=== PATIENT | male | born 1955 | race Caucasian/White ===

== ENCOUNTER 2017-02-10 12:07 | Inpatient (IN) ==
--- NOTE | 2017-02-10 13:56 | Hospitalist History & Physical ---
Assessment and Plan - Time spent with patient Time spent with patient: Greater than 30 minutes (1) Acute on chronic kidney failure Status: Acute Assessment and plan: 02/10/17 - Will admit to Hospitalist services. Order renal Ultrasound. Consult Nephrology (has seen Dr Miller in past after heart surgery). Will order a.m. labs. Will discuss with Dr Guillermo for further recommendations. Current Visit: Yes History of Present Illness Chief complaint: urinary retention History of present illness: Mr. Dennis is a very pleasant 61 year old white male presented to [facility] ED sent from Dr Jamison office for elevated BUN 101 and Creatinine 15.13, potassium 5.0. and urinary retention for further evaluation. Patient verbalized starting in December he was unable to completely empty his bladder, Dr Jamison noted on prostate exam prostate was firm on one side and PSA was normal, and no blood in stool. Today he went to Dr Jamison office because he had some nausea and worsening urinary retention and filling full; vomited once, denies any blood. Medical History: chronic back pain, HTN, GA, AFib, CAD, kidney disease, reflux. Past Surgical Hx: CABG. Social history: none smoker, denies alcohol, marijuana use occasionally. PCP: Dr Jamison. Machine I Trimmer: Dr Arellano. Code status discussed with patient: Full Code status. Home Medications Medication Instructions Recorded Confirmed Type Atorvastatin [Lipitor] 80 mg PO PC SUPPER 12/27/14 02/10/17 History Aspirin [Ecotrin] 81 mg PO QAM 01/11/15 02/10/17 History Carvedilol 12.5 mg PO BID 02/10/17 02/10/17 History Clopidogrel [Plavix] 75 mg PO QAM 02/10/17 02/10/17 History LORazepam TAB [Ativan Tab] 0.5 mg PO BEDTIME 02/10/17 02/10/17 History Losartan Potassium 100 mg PO QAM 02/10/17 02/10/17 History Tamsulosin HCl 0.4 mg PO PC BREAKFAST 02/10/17 02/10/17 History hydroCHLOROthiazide 25 mg PO QAM 02/10/17 02/10/17 History [Hydrochlorothiazide] Allergies Allergy/AdvReac Type Severity Reaction Status Date / Time No Known Allergies Allergy Verified 01/11/15 09:33 Medical,Surgical,& Family Hx - Medical History Cardio: History of: Cardiac Dysrhythmia (CURRENT DX, AFib), Hypertension Neurology: History of: Seizures (last month, hyponatremia) Rheumatology: History of;: Gout Renal: History of: Renal Problems (CRI, Stage 2 Chronic kidney disease, urinary retention) Gastrointestinal: History of: GERD Musculoskeletal: History of: Back/Neck Problems, Degenerative Disk Disease - Surgical History Cardiac Surgeries: Sugical HX of: Cardiac Surgery (CABG) Neurologic Surgeries: Patient denies: Neurologic Surgery - Family History Family History: Reports;: Family Cancer (MOTHER), Family Heart Disease (FATHER PASSED OF AMI) Denies;: Family Diabetes - Social History Smoking Status: Never smoker Frequency of Alcohol Use: None Type of Drug Use: None, Marijuana (occasional) Marital Status: Single Lives With:: Sibling (lives with his brother) Functional capacity: independent ambulation Review of systems: ROS completed and pertinent positives and negatives in HPI Exam - Constitutional Vitals: Period Temp Pulse Resp BP Sys/Chinchilla Pulse Ox Last 24 Hr 98.7 F 72 20 183/108 97 General appearance: no acute distress, over weight - Head Head exam: Present: normal inspection - Eye Eye exam: Present: EOMI Pupils: Present: STELLA - ENT ENT exam: Present: normal exam (moist mucus membranes) - Neck Neck exam: Present: normal inspection - Respiratory Respiratory exam: Present: clear to auscultation bilaterally - GI/Abdominal GI/Abdominal exam: Present: normal bowel sounds, tenderness (suprapubic with slight tenderness), other (distended bladder; ordered insert reynolds catheter). Absent: guarding, rebound - Extremities Exam Extremities exam: Present: full ROM, other (completely healed left and right lower leg vein harvest site) - Neurological Exam Neurological exam: Present: alert, oriented X3, CN II-XII intact - Psychiatric Psychiatric exam: Present: normal affect, normal mood. Absent: agitated, anxious - Skin Skin exam: Present: normal color, warm, dry Results - Labs Lab Results: I have reviewed the past 24 hour labs Labs: labs from outside (Dr jamison office) 01/17/17: Creatinine 4.45 and BUN 29 02/10/17: Creatinine 15.13 & BUN 101 & K 5.0 Labs in the ER 02/10/17: sodium 136; K 4.4; chloride 101; Carbon dioxide 19; Anion gap 20.4; BUN 88; Creatinine 14.70; Urine negative
--- NOTE | 2017-02-10 13:58 | Emergency Department Note ---
Juno Wilkins Brittany, am scribing for, and in the presence of, Lazaro Rob MD 13:13. Darron Wilkins Phillip K, MD, personally performed the services described in this documentation, ascribed by Lenka Fraire in my presence, and it is both accurate and complete 358 . Arrival - Arrival Chief Complaint: Urogenital - Male Stated Complaint: kidney's ED Nursing Triage Note: Unable to urinate x 2 months - pt states that he was sent by Dr Jamison for work up and admission. Mode of Arrival: Ambulatory Limitations: No Limitations Source: Patient Time Seen by Provider: 02/10/17 12:50 - History of Present Illness HPI Narrative: This is a 61 y/o white male, who presents to the ED for further evaluation of urinary retention which started 3 weeks ago. He reports he feels like he has to urinate but only urinates a small amount. He states at night he has to wear a diaper secondary to bladder leakage. He reports nausea. PCP is Dr. Jamison. Pt has no other complaints/pain in the ED at this time. Pt has a PMHx of Seizures, GOUT, renal problems, GERD, back/neck problems, and degenerative disk disease. Pt denies a surgical Hx. Pt has a family medical Hx of cancer and heart disease. Pt denies a social Hx. Onset (ago): month(s) (Started 2 months ago) Consistency: constant Severity: moderate Allergies/Adverse Reactions: Allergies Allergy/AdvReac Type Severity Reaction Status Date / Time No Known Allergies Allergy Verified 01/11/15 09:33 Home Medications: Home Medications Medication Instructions Recorded Confirmed Type Atorvastatin [Lipitor] 80 mg PO PC SUPPER 12/27/14 02/10/17 History Aspirin [Ecotrin] 81 mg PO QAM 01/11/15 02/10/17 History Carvedilol 12.5 mg PO BID 02/10/17 02/10/17 History Clopidogrel [Plavix] 75 mg PO QAM 02/10/17 02/10/17 History LORazepam TAB [Ativan Tab] 0.5 mg PO BEDTIME 02/10/17 02/10/17 History Losartan Potassium 100 mg PO QAM 02/10/17 02/10/17 History Tamsulosin HCl 0.4 mg PO PC BREAKFAST 02/10/17 02/10/17 History hydroCHLOROthiazide 25 mg PO QAM 02/10/17 02/10/17 History [Hydrochlorothiazide] Review of System - Review of System 12 point system: reviewed and no additional remarkable complaints except as stated - Review of System Gastrointestinal: Present: nausea Genitourinary male: Present: other (Urinary retention ) Medical,Surgical,& Family Hx - Medical History Cardio: History of: Cardiac Dysrhythmia (CURRENT DX) Neurology: History of: Seizures (new onset today, hyponatremia) Rheumatology: History of;: Gout Renal: History of: Renal Problems (CRI) Gastrointestinal: History of: GERD Musculoskeletal: History of: Back/Neck Problems, Degenerative Disk Disease - Surgical History Neurologic Surgeries: Patient denies: Neurologic Surgery - Family History Family History: Reports;: Family Cancer (MOTHER), Family Heart Disease (FATHER PASSED OF AMI) Denies;: Family Diabetes - Social History Smoking Status: Never smoker Frequency of Alcohol Use: None Type of Drug Use: None Exam Vital Signs: Vital Signs Temperature 98.7 F 02/10/17 14:21 Pulse Rate 72 02/10/17 14:21 Respiratory Rate 20 02/10/17 14:21 Blood Pressure 183/108 02/10/17 14:21 O2 Sat by Pulse Oximetry 97 02/10/17 12:23 - General General appearance: alert, in no apparent distress - Head Head exam: Present: atraumatic, normocephalic, normal inspection - Eye Eye exam: Present: PERRL, EOMI, other (Pale conjunctiva). Absent: nystagmus, miosis, mydriasis - ENT ENT exam: Present: normal exam, normal oropharynx, mucous membranes moist, TM's normal bilaterally, normal external ear exam - Neck Neck exam: Present: normal inspection, full ROM, trachea midline. Absent: tenderness, meningismus, lymphadenopathy, thyromegaly - Chest Chest inspection: Present: normal inspection, symmetric chest wall rise. Absent : tenderness, rash, abscess - Respiratory Respiratory exam: Present: normal lung sounds bilaterally. Absent: rales, respiratory distress, rhonchi, stridor, wheezes - Cardiovascular Cardiovascular exam: Present: regular rate, normal rhythm, normal heart sounds. Absent: murmur, rubs, gallop, clicks, JVD - Abdominal Exam Abdominal exam: Present: soft, tenderness (Supra pubic tendnerness), normal bowel sounds, other (Distended bladder). Absent: distention, guarding, rebound , rigidity - Rectal Exam Rectal exam: Present: deferred - Extremities Exam Extremities exam: Present: normal capillary refill, pedal edema (+1 pitting edema to the right exteremity, while the left has +2 pitting edema). Absent: joint swelling, calf tenderness - Back Exam Back exam: Present: normal inspection, full ROM. Absent: tenderness, muscle spasm, rashes - Neurological Exam Neurological exam: Present: alert, oriented X3, CN II-XII intact. Absent: motor sensory deficit - Psychiatric Psychiatric exam: Present: normal affect, normal mood. Absent: depressed, agitated, anxious, flat affect, manic - Skin Skin exam: Present: warm, dry, intact, normal color. Absent: rash, cyanosis, diaphoresis, erythema, pallor, mottled Course Course Narrative: Patient had 2000 cc residual urine after trying to void. Results - Labs CBC & BMP: 02/10/17 13:15 Lab Results: I have reviewed the patients labs Labs: Laboratory Tests 02/10/17 02/10/17 13:15 13:15 Sodium 136 Potassium 4.4 Chloride 101 Carbon Dioxide 19 L Anion Gap 20.4 H BUN 88 H Creatinine 14.70 H GFR Calculation 4 BUN/Creatinine Ratio 5.00 L Glucose 141 H Calculated Osmolality 300.0 Calcium 8.9 Total Bilirubin 0.70 AST 20 ALT 19 Alkaline Phosphatase 85 Total Protein 6.9 Albumin 3.9 Globulin 3.0 Albumin/Globulin Ratio 1.3 Urine Color Straw Urine Appearance Clear Urine pH 5.0 Ur Specific [place] 1.004 Urine Protein Negative Urine Glucose (UA) Negative Urine Ketones Negative Urine Blood Moderate Urine Nitrate Negative Urine Bilirubin Negative Urine Urobilinogen < 2.0 H Urine Leukocytes Negative Urine RBC 1 Urine WBC 1 Urine Bacteria Occasional Ur Culture Indicated? Not indicated - Diagnostic Findings Procedure: Ultrasound: report reviewed by me (Renal ultrasound: Increased parenchymal echolgencitiy of the kidneys consistent with medical renal disease. Bilateral renal cysts. Mild right hydronephrosis. Urinary bladder wall thickening. ) Disposition Clinical Impression: Renal failure, Urinary retention due to benign prostatic hyperplasia Case discussed with: patient Disposition: Still a Patient Condition: Guarded Additional Instructions: Admit to the hospitalist.
[2017-02-10 14:02] LABS: Albumin 3.9 G/DL (3.4-5.0); Bilirubin,Total 0.7 MG/DL (0.2-1.0); Calcium 8.9 MG/DL (8.5-10.1); Potassium 4.4 MMOL/L (3.5-5.1); Total Protein 6.9 G/DL (6.4-8.3)
[2017-02-10 14:04] LABS: Apearance,Urine CLEAR (Clear); Bacteria,Urine Occasional /HPF (Few); Bilirubin,Urine Negative (Negative); Blood, Urine Moderate mg/dL (Negative); Glucose,Urine (UA) Negative (Negative); Ketones,Urine Negative (Negative); Nitrite,Urine Negative (Negative); Protein,Urine Negative; RBC,Urine 1 /HPF (0-4); Urine Color Straw (Yellow); Urine Specific Gravity 1.004 (1.001-1.035); Urine Urobilinogen < 2.0 EU/DL (0.2-1.0); WBC,Urine 1 /HPF (0-6)
[2017-02-10] MEDS ORDERED: ACETAMINOPHEN 325 MG TABLET PO PRN (14:22)
--- NOTE | 2017-02-10 15:10 | Ultrasound Report ---
Bilateral renal ultrasound. Indication: Urinary retention. No prior studies. The kidneys are normal in size. The right kidney measures 9.9 x 5.0 x 4.7 cm. The left kidney measures 10.9 x 5.7 x 5.6 cm. The cortical thickness is normal. There is an increase in the parenchymal echogenicity which can be seen with medical renal disease. There is a 3 cm cyst at the midpole of the right kidney. There is a 3.2 cm cyst at the lower pole of the left kidney. There is mild hydronephrosis on the right. There is a thickened bladder wall. Impression: Increased parenchymal echogenicity of the kidneys consistent with medical renal disease. Bilateral renal cysts. Mild right hydronephrosis. Urinary bladder wall thickening PROCEDURE INTERPRETED AT [facility] DEPARTMENT OF RADIOLOGY Final Report Signed by: Dr. Antonella Lopez
--- NOTE | 2017-02-10 17:09 | Nephrology Consult Note ---
History of Present Illness Chief complaint: Increased BUN and creatinine History of present illness: Mr. Dennis is a 61 year old male with chronic kidney disease stage III who presented for admission today due to increased creatinine of 14 mg/dL. The patient states that for about 2 months he has been having some problems with urination including hesitancy and frequency as well as incontinence at night. The symptoms worsened in the past couple of weeks. He has also been having a sensation of pelvic fullness for the past couple weeks and started to have some nausea and vomiting as well as some decreased p.o. intake relating that he would have a desire to eat but as soon as he ate he lost that desire. The patient had been given Lasix and Flomax and an increase in his blood pressure medication a couple of months ago when he first started having symptoms of urinary retention and hesitancy. Patient denies any history of diabetes, he does state that he has had high blood pressure as well as heart disease and had a bypass procedure on his heart about 3 years ago and since that time has been told that he has some chronic kidney disease. ROS: Head -occasional headaches ENT - denies sore throat Lymphatics - denies lymphadenopathy Hematology - denies bleeding problems Heart - denies chest pain Lungs -positive shortness of breath Abdomen - denies abdominal pain Musculoskeletal -positive arthritis except he does complain of some occasional back pain for which he takes [place] supplied from his brother Skin - denies rash Neurology - denies stroke General - denies fever PE: General: in no acute distress Eyes: Pupils are round and reactive, conjunctivae are clear ENT: Nose is clear, O/P is benign Neck: Supple, no thyromegaly Lymphatics: No cervical, supraclavicular or axillary adenopathy Heart: Regular rate and rhythm, trace pretibial edema Lungs: Clear to auscultation anteriorly, chest expansion symmetric Abdomen: Soft, normoactive bowel sounds, no hepatomegaly Musculoskeletal: No joint erythema or effusions or joint asymmetry Skin: Normal turgor, normal hydration, no rash Neuro/Psych: Alert and cooperative with fair insight, at the end of the interview the patient started to get emotional anterior up some when he was talking about his back pain and having to take some [place] as well as some Ativan , which he states was not helping his back pain. Home Medications Medication Instructions Recorded Confirmed Type Atorvastatin [Lipitor] 80 mg PO PC SUPPER 12/27/14 02/10/17 History Aspirin [Ecotrin] 81 mg PO QAM 01/11/15 02/10/17 History Carvedilol 12.5 mg PO BID 02/10/17 02/10/17 History Clopidogrel [Plavix] 75 mg PO QAM 02/10/17 02/10/17 History LORazepam TAB [Ativan Tab] 0.5 mg PO BEDTIME 02/10/17 02/10/17 History Losartan Potassium 100 mg PO QAM 02/10/17 02/10/17 History Tamsulosin HCl 0.4 mg PO PC BREAKFAST 02/10/17 02/10/17 History hydroCHLOROthiazide 25 mg PO QAM 02/10/17 02/10/17 History [Hydrochlorothiazide] Allergies Allergy/AdvReac Type Severity Reaction Status Date / Time No Known Allergies Allergy Verified 01/11/15 09:33 Medical,Surgical,& Family Hx - Medical History Cardio: History of: Cardiac Dysrhythmia (CURRENT DX), Hypertension Neurology: History of: Seizures (new onset today, hyponatremia) Rheumatology: History of;: Gout Renal: History of: Renal Problems (CRI) Gastrointestinal: History of: GERD Musculoskeletal: History of: Back/Neck Problems, Degenerative Disk Disease - Surgical History Cardiac Surgeries: Sugical HX of: Cardiac Surgery (CABG) Neurologic Surgeries: Patient denies: Neurologic Surgery - Family History Family History: Reports;: Family Cancer (MOTHER), Family Heart Disease (FATHER PASSED OF AMI) Denies;: Family Diabetes - Social History Smoking Status: Never smoker Frequency of Alcohol Use: None Type of Drug Use: None Exam - Vital Signs Vital signs: Period Temp Pulse Resp BP Sys/Chinchilla Pulse Ox Last 24 Hr 97.3 F-98.7 F 62-72 20-20 141-183/93-108 97-98 Results - Labs CBC & BMP: 02/10/17 13:15 Assessment and Plan (1) Acute on chronic kidney failure Status: Acute Assessment and plan: This patient's creatinine was around 3 mg/dL 2 years ago, his creatinine is increased at 14 now he had 2 L of urine to pass immediately upon placing a Mart catheter. I suspect he has acute renal failure related to urinary obstruction and retention. I am going to start him on some IV fluids and will ask urology to see him in consultation Current Visit: Yes (2) Coronary artery disease Status: Acute Current Visit: Yes (3) Urinary retention due to benign prostatic hyperplasia Status: Acute Current Visit: Yes (4) Hypertension Status: Chronic Current Visit: No (5) Metabolic acidosis Status: Acute Assessment and plan: We will monitor this Current Visit: Yes (6) Chronic back pain Status: Acute Current Visit: Yes (7) Hematuria Status: Acute Assessment and plan: This may be secondary to catheterization trauma with the Mart versus bladder injury related to his urinary bladder distention and retention. Current Visit: Yes
[2017-02-10] MEDS: SODIUM CHLORIDE 0.9% 1,000 ML IV SCH (17:36)
[2017-02-10] MEDS: ATORVASTATIN 10 MG TABLET PO SCH (18:14)
--- NOTE | 2017-02-10 19:21 | Urology Consultation ---
Assessment and Plan - Time spent with patient Time spent with patient: Less than 30 minutes (1) BPH w urinary obs/LUTS Status: Acute Assessment and plan: We will double his Flomax. Follow his labs irrigate his catheter as needed I suspect he is going to be here a few days. Current Visit: Yes History of Present Illness - Data of Consult Patient: new to practice Consult date: 02/10/17 Requesting Physician: Freddy Guillermo - Consult Narrative Reason for consult: Urinary retention with gross hematuria History of present illness: Mr. Dennis is a 61 year old male who was found to be in urinary retention. He has had lower urinary tract symptoms was placed on Flomax recently. He came in and a residual 2000 cc. Mart catheter was placed now he has acute bladder hemorrhage. He has been on Plavix. But he had a previous coronary bypass graft. His creatinine on admission is almost 15. His ultrasound however showed just mild right hydronephrosis. I will double his Flomax he is going to be here a few days they need to irrigate the catheter. We need to stop his Plavix and aspirin. Repeat his labs in the morning CC: Freddy Guillermo MD - Home Medications and Allergies Home Medications: Home Medications Medication Instructions Recorded Confirmed Type Atorvastatin [Lipitor] 80 mg PO PC SUPPER 12/27/14 02/10/17 History Aspirin [Ecotrin] 81 mg PO QAM 01/11/15 02/10/17 History Carvedilol 12.5 mg PO BID 02/10/17 02/10/17 History Clopidogrel [Plavix] 75 mg PO QAM 02/10/17 02/10/17 History LORazepam TAB [Ativan Tab] 0.5 mg PO BEDTIME 02/10/17 02/10/17 History Losartan Potassium 100 mg PO QAM 02/10/17 02/10/17 History Tamsulosin HCl 0.4 mg PO PC BREAKFAST 02/10/17 02/10/17 History hydroCHLOROthiazide 25 mg PO QAM 02/10/17 02/10/17 History [Hydrochlorothiazide] Allergies/Adverse Reactions: Allergies Allergy/AdvReac Type Severity Reaction Status Date / Time No Known Allergies Allergy Verified 01/11/15 09:33 Exam - Constitutional Vitals: Period Temp Pulse Resp BP Sys/Chinchilla Pulse Ox Last 24 Hr 97.3 F-98.7 F 62-72 20-20 141-183/93-108 97-98 Results - Labs CBC & BMP: 02/10/17 13:15
[2017-02-10] MEDS: TAMSULOSIN 0.4 MG CAPSULE PO SCH (20:58)
[2017-02-10] MEDS: LORazepam 0.5 MG TABLET PO SCH (20:59)
[2017-02-10] MEDS: CARVEDILOL 12.5 MG TABLET PO SCH (20:59)
[2017-02-10] MEDS: ONDANSETRON 4 MG/2 ML VIAL IV PRN (21:04)
[2017-02-11] MEDS: SODIUM CHLORIDE 0.9% 1,000 ML IV SCH ×5 (01:42→20:31)
[2017-02-11 02:07] LABS: Calcium 8.2 MG/DL (8.5-10.1); Magnesium 3.1 MG/DL (1.8-2.4); Osmolality,Calculated 307.4 MOS/KG (273-304); Potassium 4.6 MMOL/L (3.5-5.1)
[2017-02-11 02:29] LABS: Basophils % 0.4 % (0.0-0.8); Eosinophils # 0.1 10*3/uL (0.0-0.87); Hematocrit 30.4 VOL% (42.0-52.0); Hemoglobin 10.1 GM/DL (14.0-18.0); Immature Granulocytes % 0.5 %; Immature Granulocytes Absolute 0.05 #; Lymphocytes # 1.1 10*3/uL (1.4-4.0); Lymphocytes % 11.4 % (21.2-54.2); Mean Corpuscular HGB Conc 33.2 GM/DL (32-36); Mean Corpuscular Hemoglobin 28 PG (27-34); Mean Platelet Volume 12.5 FL (9.6-12.0); Monocytes % 9.8 % (1.7-12.7); Neutrophils # 7.7 10*3/uL (1.4-7.4); Neutrophils % 76.9 % (38.7-73.9); Platelet Count 131 T/CUMM (130-400); Red Blood Count 3.62 MC/CUMM (3.8-5.5); Red Cell Distribution Width 14.6 % (9.3-17.3)
[2017-02-11] MEDS ORDERED: CLOPIDOGREL 75 MG TABLET PO SCH (09:00)
[2017-02-11] MEDS ORDERED: TAMSULOSIN 0.4 MG CAPSULE PO SCH (09:00)
[2017-02-11] MEDS ORDERED: ASPIRIN EC 81 MG TABLET PO SCH (09:00)
[2017-02-11] MEDS: TAMSULOSIN 0.4 MG CAPSULE PO SCH ×2 (09:13→20:24)
[2017-02-11] MEDS: CARVEDILOL 12.5 MG TABLET PO SCH ×2 (09:13→20:24)
[2017-02-11] MEDS: PANTOPRAZOLE 40 MG TABLET PO SCH (09:14)
--- NOTE | 2017-02-11 10:26 | Nephrology Progress Note ---
Nephrology - PN: Subj Interval history: Patient feels better this morning. He states he was able to eat without feeling satiated just after a few bites. He states the food taste better now. Review of systems pulmonary denies shortness of breath Physical exam general patient is in no acute distress, he has no pitting edema Assessment/plan 1. Acute renal failure-this patient's creatinine is improved to 13 from 14 yesterday he had about 7 L of fluid output yesterday after Mart catheter placement, he has had 1400 cc of urine output the first shift of the day today. I am going to increase his IV fluids due to his postobstructive diuresis. 2. Chronic kidney disease stage III-this patient's baseline creatinine is thought to be around 2.7 mg/dL he 3. Urinary obstruction-management per Dr. Mcnair, he is increased the patient 's Flomax 4. Metabolic acidosis-patient's bicarbonate is increased to 21 this morning. Will continue to monitor this. 5. Anemia-patient's hematocrit is 30% Exam (PN)-Nephrology - Vital Signs Vital signs: Period Temp Pulse Resp BP Sys/Chinchilla Pulse Ox Last 24 Hr 97.3 F-98.7 F 57-110 18-20 96-191/53-108 97-99 - Lab 02/11/17 01:17 02/11/17 01:17 Most recent lab results Calcium 8.2 MG/DL (8.5-10.1) L 02/11/17 01:17 Magnesium 3.1 MG/DL (1.8-2.4) H 02/11/17 01:17 Assessment and Plan (1) Acute on chronic kidney failure Status: Acute Assessment and plan: This patient's creatinine was around 3 mg/dL 2 years ago, his creatinine is increased at 14 now he had 2 L of urine to pass immediately upon placing a Mart catheter. I suspect he has acute renal failure related to urinary obstruction and retention. I am going to start him on some IV fluids and will ask urology to see him in consultation Current Visit: Yes (2) Coronary artery disease Status: Acute Current Visit: Yes (3) Urinary retention due to benign prostatic hyperplasia Status: Acute Current Visit: Yes (4) Hypertension Status: Chronic Current Visit: No (5) Metabolic acidosis Status: Acute Assessment and plan: We will monitor this Current Visit: Yes (6) Chronic back pain Status: Acute Current Visit: Yes (7) Hematuria Status: Acute Assessment and plan: This may be secondary to catheterization trauma with the Mart versus bladder injury related to his urinary bladder distention and retention. Current Visit: Yes
--- NOTE | 2017-02-11 12:44 | Urology Progress Note ---
Assessment and Plan (1) BPH w urinary obs/LUTS Status: Acute Assessment and plan: We will double his Flomax. Follow his labs irrigate his catheter as needed I suspect he is going to be here a few days. Current Visit: Yes Urology - PN: Subj Interval history: Patient's urine is cleared up. His creatinine did not drop as much as I thought it would have. He only had a little hydronephrosis on one side. He may have more medical renal disease and obstructive problems. As far as I am concerned he can start his aspirin tomorrow. I will cystoscope him on Tuesday, . Exam - Constitutional Vitals: Period Temp Pulse Resp BP Sys/Chinchilla Pulse Ox Last 24 Hr 97.3 F-98.7 F 57-110 18-20 96-191/53-108 98-99 Results - Labs CBC & BMP: 02/11/17 01:17 02/11/17 01:17
[2017-02-11] MEDS: DOCUSATE SODIUM 100 MG CAPSULE PO PRN (17:17)
[2017-02-11] MEDS: ATORVASTATIN 10 MG TABLET PO SCH (17:17)
[2017-02-11] MEDS: LORazepam 0.5 MG TABLET PO SCH (20:24)
[2017-02-11] MEDS: ONDANSETRON 4 MG/2 ML VIAL IV PRN (20:28)
--- NOTE | 2017-02-11 20:39 | Hospitalist Progress Note ---
Assessment and Plan (1) Acute on chronic kidney failure Status: Acute Assessment and plan: Continue to monitor BUN/creatinine Current Visit: Yes (2) BPH w urinary obs/LUTS Status: Acute Assessment and plan: He is on Flomax, Urology is following, he has a Mart's catheter Current Visit: Yes (3) Coronary artery disease Status: Acute Assessment and plan: Stable, just monitor Current Visit: Yes Hospitalist: Subjective Interval history: 61-year-old male with history of for hypertension A. fib chronic kidney disease , coronary artery disease had CABG about 2 years ago. He did suffer acute kidney injury and was seen by nephrology at that time. He had a creatinine of 2.6 in December 2014. He has been having urinary retention with some nausea for last couple weeks and sometime he actually has incontinence requiring to wear diapers. He is seen by primary care provider today and had lab work done where he was noted to have a BUN of 101 creatinine of 15. He was asked to come to ER where labs repeated and confirmed he had a BUN of 88 and creatinine 14.7. He had the usual urine Mart catheter placed and about 2 L urine was obtained. He had abdominal pain in suprapubic area and significantly improved after the catheterization. Exam - Constitutional Vitals: Period Temp Pulse Resp BP Sys/Chinchilla Pulse Ox Last 24 Hr 97.0 F-98.4 F 57-110 18-20 96-128/53-84 97-100 General appearance: normal weight, no acute distress - Head Head exam: Present: normal inspection, normocephalic - Eye Eye exam: Present: EOMI Pupils: Present: STELLA - ENT ENT exam: Present: normal exam - Neck Neck exam: Present: normal inspection - Respiratory Respiratory exam: Present: clear to auscultation bilaterally - GI/Abdominal GI/Abdominal exam: Present: normal bowel sounds - Back Exam Back exam: Present: normal inspection - Neurological Exam Neurological exam: Present: alert, oriented X3 - Psychiatric Psychiatric exam: Present: normal affect, normal mood - Skin Skin exam: Present: normal color, warm Results - Labs CBC & BMP: 02/11/17 01:17 02/11/17 01:17
[2017-02-12] MEDS: SODIUM CHLORIDE 0.9% 1,000 ML IV SCH ×3 (04:21→23:46)
[2017-02-12] MEDS: ASPIRIN EC 81 MG TABLET PO SCH (09:47)
[2017-02-12] MEDS: PANTOPRAZOLE 40 MG TABLET PO SCH (09:47)
[2017-02-12] MEDS: CARVEDILOL 12.5 MG TABLET PO SCH ×2 (09:47→20:22)
[2017-02-12] MEDS: TAMSULOSIN 0.4 MG CAPSULE PO SCH ×2 (09:47→20:23)
--- NOTE | 2017-02-12 15:15 | Nephrology Progress Note ---
Nephrology - PN: Subj Interval history: The patient is resting comfortably. No acute changes. No fevers or chills. Good urine output in Mart bag. Continues with IV fluids. No shortness of breath. He request a laxative. Exam (PN)-Nephrology - Vital Signs Vital signs: Period Temp Pulse Resp BP Sys/Chinchilla Pulse Ox Last 24 Hr 97.0 F-97.9 F 56-68 18-20 97-128/55-84 97-100 - General Appearance General appearance: well-developed, well-nourished EENT: ATNC Neck: supple Respiratory: clear Cardiology: regular rate, regular rhythm Gastrointestinal: normoactive bowel sounds Neurologic: alert and oriented x3 Musculoskeletal: no clubbing Psychiatric: mood/affect appropriate - Lab 02/11/17 01:17 02/11/17 01:17 Most recent lab results Calcium 8.2 MG/DL (8.5-10.1) L 02/11/17 01:17 Magnesium 3.1 MG/DL (1.8-2.4) H 02/11/17 01:17 Assessment and Plan (1) Ischemic cardiomyopathy Status: Chronic Current Visit: No (2) Diabetes Status: Chronic Current Visit: No Qualifiers: Diabetes mellitus type: type 2 (3) Acute worsening of stage 3 chronic kidney disease Status: Chronic Current Visit: No (4) Urinary retention due to benign prostatic hyperplasia Status: Acute Current Visit: Yes (5) Metabolic acidosis Status: Acute Current Visit: Yes
[2017-02-12] MEDS: MAGNESIUM HYDROXIDE SUSP 30 ML UDCUP PO PRN (15:48)
[2017-02-12] MEDS: ATORVASTATIN 10 MG TABLET PO SCH (19:19)
[2017-02-12] MEDS: LORazepam 0.5 MG TABLET PO SCH (20:22)
--- NOTE | 2017-02-12 21:29 | Hospitalist Progress Note ---
Assessment and Plan (1) Acute on chronic kidney failure Status: Acute Assessment and plan: Continue to monitor BUN/creatinine, rattling remains significantly elevated around 13 and Urology has scheduled him for a cystoscopy on Tuesday. He does not have any uremic symptoms Current Visit: Yes (2) BPH w urinary obs/LUTS Status: Acute Assessment and plan: He is on Flomax, Urology is following, he has a Mart's catheter Current Visit: Yes (3) Coronary artery disease Status: Acute Assessment and plan: Stable, just monitor Current Visit: Yes Hospitalist: Subjective Interval history: 61-year-old male with history of for hypertension A. fib chronic kidney disease , coronary artery disease had CABG about 2 years ago. He did suffer acute kidney injury and was seen by nephrology at that time. He had a creatinine of 2.6 in December 2014. He has been having urinary retention with some nausea for last couple weeks and sometime he actually has incontinence requiring to wear diapers. He is seen by primary care provider today and had lab work done where he was noted to have a BUN of 101 creatinine of 15. He was asked to come to ER where labs repeated and confirmed he had a BUN of 88 and creatinine 14.7. He had the usual urine Mart catheter placed and about 2 L urine was obtained. He had abdominal pain in suprapubic area and significantly improved after the catheterization. He is due for cystoscopy on Tuesday by urology. Creatinine remains significantly elevated around 13 Exam - Constitutional Vitals: Period Temp Pulse Resp BP Sys/Chinchilla Pulse Ox Last 24 Hr 97.4 F-97.9 F 56-68 18-20 97-157/55-86 96-100 General appearance: no acute distress - Head Head exam: Present: normal inspection, normocephalic, atraumatic - Eye Eye exam: Present: EOMI Pupils: Present: STELLA - ENT ENT exam: Present: normal exam - Neck Neck exam: Present: normal inspection, lymphadenopathy - Respiratory Respiratory exam: Present: clear to auscultation bilaterally - Cardiovascular Cardiovascular exam: Present: regular rate and rhythm - GI/Abdominal GI/Abdominal exam: Present: normal bowel sounds - Extremities Exam Extremities exam: Present: normal inspection, normal capillary refill - Neurological Exam Neurological exam: Present: alert, oriented X3 - Psychiatric Psychiatric exam: Present: normal affect, normal mood - Skin Skin exam: Present: normal color, warm, dry Results - Labs CBC & BMP: 02/11/17 01:17 02/11/17 01:17
[2017-02-13] MEDS: MAGNESIUM HYDROXIDE SUSP 30 ML UDCUP PO PRN (00:33)
[2017-02-13 05:54] LABS: Basophils % 0.6 % (0.0-0.8); Eosinophils # 0.3 10*3/uL (0.0-0.87); Eosinophils % 3.8 % (0.00-10.9); Hematocrit 29.4 VOL% (42.0-52.0); Hemoglobin 9.9 GM/DL (14.0-18.0); Immature Granulocytes % 0.4 %; Immature Granulocytes Absolute 0.03 #; Lymphocytes # 1.2 10*3/uL (1.4-4.0); Lymphocytes % 17.1 % (21.2-54.2); Mean Corpuscular HGB Conc 33.7 GM/DL (32-36); Mean Corpuscular Hemoglobin 28 PG (27-34); Mean Corpuscular Volume 83.5 FL (87-102); Mean Platelet Volume 11.6 FL (9.6-12.0); Monocytes # 0.5 10*3/uL (0.11-0.8); Monocytes % 7.6 % (1.7-12.7); Neutrophils # 4.8 10*3/uL (1.4-7.4); Neutrophils % 70.5 % (38.7-73.9); Platelet Count 107 T/CUMM (130-400); Red Blood Count 3.52 MC/CUMM (3.8-5.5); Red Cell Distribution Width 14.7 % (9.3-17.3); White Blood Count 6.8 T/CUMM (4-12)
[2017-02-13 06:20] LABS: Calcium 8.4 MG/DL (8.5-10.1); Osmolality,Calculated 302.7 MOS/KG (273-304); Potassium 3.1 MMOL/L (3.5-5.1)
[2017-02-13] MEDS: ASPIRIN EC 81 MG TABLET PO SCH (09:41)
[2017-02-13] MEDS: CARVEDILOL 12.5 MG TABLET PO SCH ×2 (09:41→20:55)
[2017-02-13] MEDS: DOCUSATE SODIUM 100 MG CAPSULE PO PRN (09:41)
[2017-02-13] MEDS: PANTOPRAZOLE 40 MG TABLET PO SCH (09:41)
[2017-02-13] MEDS: TAMSULOSIN 0.4 MG CAPSULE PO SCH ×2 (09:41→20:55)
--- NOTE | 2017-02-13 10:36 | Nephrology Progress Note ---
Nephrology - PN: Subj Interval history: Patient is resting comfortably no acute changes. Serum creatinine is noted to be 6.3 dramatically down from yesterday. No shortness of breath or chest pain. Will supplement potassium today. Exam (PN)-Nephrology - Vital Signs Vital signs: Period Temp Pulse Resp BP Sys/Chinchilla Pulse Ox Last 24 Hr 97.6 F-97.9 F 53-70 18-20 102-157/55-86 96-100 - General Appearance General appearance: well-developed, well-nourished EENT: ATNC Neck: supple Respiratory: clear Cardiology: no edema, regular rate, regular rhythm Gastrointestinal: normoactive bowel sounds, no tenderness Integumentary: no rash Neurologic: alert and oriented x3, CN 3-12 intact Musculoskeletal: no clubbing Psychiatric: mood/affect appropriate - Lab 02/13/17 05:14 02/13/17 05:14 Most recent lab results Calcium 8.4 MG/DL (8.5-10.1) L 02/13/17 05:14 Magnesium 3.1 MG/DL (1.8-2.4) H 02/11/17 01:17 Assessment and Plan (1) Ischemic cardiomyopathy Status: Chronic Current Visit: No (2) Diabetes Status: Chronic Current Visit: No Qualifiers: Diabetes mellitus type: type 2 (3) Acute worsening of stage 3 chronic kidney disease Status: Chronic Assessment and plan: Acute renal failure is improving. Current Visit: No (4) Urinary retention due to benign prostatic hyperplasia Status: Acute Current Visit: Yes (5) Metabolic acidosis Status: Resolved Assessment and plan: This is resolved. Current Visit: Yes
--- NOTE | 2017-02-13 13:57 | Hospitalist Progress Note ---
Assessment and Plan (1) Acute on chronic kidney failure Status: Acute Assessment and plan: Patient has chronic kidney disease now acute renal failure probably due to urinary retention. Infection has improved nephrology following keep an hydration Current Visit: Yes (2) Urinary retention due to benign prostatic hyperplasia Status: Acute Assessment and plan: Patient seen by and suspected BPH with the urinary retention patient has Mart catheter and has good urine output cystoscopy is planned by due on Tuesday Current Visit: Yes (3) Anemia Status: Chronic Assessment and plan: Appears to be chronic and stable Current Visit: Yes (4) Hypertension Status: Chronic Current Visit: No Hospitalist: Subjective Interval history: Mr. Thomason was admitted on 02/10/2017. He has history of hypertension A. fib CKD and coronary artery disease. He was noted to have urinary retention and abnormal renal function. His creatinine was up from previous studies in 2014 of 2.62 14.7. He had a good amount of urine output after Mart placement. He has been on IV fluid and seen by urology. Cystoscopy to be performed Tuesday he is also followed by nephrology. No subjective symptoms reported by patient is left Mart catheter in place with good urine output Exam - Constitutional Vitals: Period Temp Pulse Resp BP Sys/Chinchilla Pulse Ox Last 24 Hr 97.6 F-98.1 F 53-70 18-20 102-157/55-86 96-100 General appearance: no acute distress - Cardiovascular Cardiovascular exam: Present: regular rate and rhythm. Absent: tachycardia - GI/Abdominal GI/Abdominal exam: Present: normal bowel sounds, soft. Absent: distended, tenderness - Extremities Exam Extremities exam: Present: normal inspection. Absent: edema - Neurological Exam Neurological exam: Present: alert, oriented X3 Results - Labs CBC & BMP: 02/13/17 05:14 02/13/17 05:14 Lab Results: I have reviewed the past 24 hour labs
[2017-02-13] MEDS: SODIUM CHLORIDE 0.9% 1,000 ML IV SCH ×2 (14:44→20:54)
[2017-02-13] MEDS: ONDANSETRON 4 MG/2 ML VIAL IV PRN (16:14)
[2017-02-13] MEDS: ATORVASTATIN 10 MG TABLET PO SCH (19:03)
[2017-02-13] MEDS: LORazepam 0.5 MG TABLET PO SCH (20:55)
[2017-02-14] MEDS: SODIUM CHLORIDE 0.9% 1,000 ML IV SCH ×5 (00:58→22:47)
[2017-02-14] MEDS ORDERED: LIDOCAINE 2% TOP JELLY 20 ML VIAL INTRAURETH ONE (08:20)
--- NOTE | 2017-02-14 08:40 | Nephrology Progress Note ---
Nephrology - PN: Subj Interval history: Patient is feeling better. He denies nausea or vomiting. Review of systems pulmonary denies shortness of breath Physical exam general patient is in no acute distress Assessment/plan #1. Acute renal failure-this patient's creatinine is dramatically improved with Mart catheter drainage. We will continue to monitor for improvement 2. Bradycardia-patient's heart rate is been around 47 a day, he is on a beta- dianne in the form of Coreg, I am going to decrease the dose of this 3. Hypertension-patient's systolic blood pressures around 114 range today 4. Urinary obstruction-management per Dr. Mcnair Exam (PN)-Nephrology - Vital Signs Vital signs: Period Temp Pulse Resp BP Sys/Chinchilla Pulse Ox Last 24 Hr 98 F-98.6 F 49-64 18-20 99-149/55-86 96-100 - Lab 02/13/17 05:14 02/13/17 05:14 Most recent lab results Calcium 8.4 MG/DL (8.5-10.1) L 02/13/17 05:14 Magnesium 3.1 MG/DL (1.8-2.4) H 02/11/17 01:17 Assessment and Plan (1) Acute on chronic kidney failure Status: Acute Assessment and plan: This patient's creatinine was around 3 mg/dL 2 years ago, his creatinine is increased at 14 now he had 2 L of urine to pass immediately upon placing a Mart catheter. I suspect he has acute renal failure related to urinary obstruction and retention. I am going to start him on some IV fluids and will ask urology to see him in consultation Current Visit: Yes (2) Coronary artery disease Status: Acute Current Visit: Yes (3) Urinary retention due to benign prostatic hyperplasia Status: Acute Current Visit: Yes (4) Hypertension Status: Chronic Current Visit: No (5) Metabolic acidosis Status: Resolved Assessment and plan: We will monitor this Current Visit: Yes (6) Chronic back pain Status: Acute Current Visit: Yes (7) Hematuria Status: Acute Assessment and plan: This may be secondary to catheterization trauma with the Mart versus bladder injury related to his urinary bladder distention and retention. Current Visit: Yes
[2017-02-14 08:41] LABS: Basophils # 0.1 10*3/uL (0.0-0.2); Basophils % 0.4 % (0.0-0.8); Eosinophils # 0.5 10*3/uL (0.0-0.87); Eosinophils % 4.5 % (0.00-10.9); Hematocrit 34.4 VOL% (42.0-52.0); Hemoglobin 11.5 GM/DL (14.0-18.0); Immature Granulocytes % 0.5 %; Immature Granulocytes Absolute 0.06 #; Lymphocytes # 1.2 10*3/uL (1.4-4.0); Lymphocytes % 10.4 % (21.2-54.2); Mean Corpuscular HGB Conc 33.4 GM/DL (32-36); Mean Corpuscular Hemoglobin 28 PG (27-34); Mean Corpuscular Volume 84.9 FL (87-102); Mean Platelet Volume 11.8 FL (9.6-12.0); Monocytes # 0.7 10*3/uL (0.11-0.8); Monocytes % 6.4 % (1.7-12.7); Neutrophils # 8.6 10*3/uL (1.4-7.4); Neutrophils % 77.8 % (38.7-73.9); Platelet Count 177 T/CUMM (130-400); Red Blood Count 4.05 MC/CUMM (3.8-5.5); Red Cell Distribution Width 14.8 % (9.3-17.3); White Blood Count 11.1 T/CUMM (4-12)
[2017-02-14 09:15] LABS: Albumin 3.9 G/DL (3.4-5.0); Bilirubin,Total 1.9 MG/DL (0.2-1.0); Calcium 8.8 MG/DL (8.5-10.1); Osmolality,Calculated 294.1 MOS/KG (273-304); Potassium 3.5 MMOL/L (3.5-5.1)
--- NOTE | 2017-02-14 09:22 | Operative Note ---
Date of procedure: 02/14/17 Pre-op diagnosis: BPH urinary retention, gross hematuria, renal failure Post-op diagnosis: same Procedure: 61-year-old gentleman who comes to hospital with urinary retention had 2 L in his bladder. He had acute bladder hemorrhage after catheter was placed. I suspect they did not clamp and wait. His urine is cleared up his creatinine is dropped to 6. Brought in for endoscopy. Patient brought to the cystoscopy suite placed table in supine position. Mart catheter was removed. He is prepared and draped in usual sterile manner. 2% Xylocaine jelly is injected in urethra. Flexible 16 Moldovan cystourethroscope passed under direct vision. Urethra is normal. Prostate is 2 fingerbreadths trilobar obstruction. Bladder shows poor tone catheter reaction. Nothing to suggest a cancer. Ureteral orifices are normal clear reflux. Cystoscope removed and a 18 Moldovan coud tip Mart is placed left to gravity drainage. Patient tolerates procedure well and was sent to his room in good condition. Implants: 18 Moldovan coud Mart Anesthesia: local Surgeon / Physician: Neptali Mcnair Estimated blood loss: none Specimens: none sent Condition: stable Disposition: floor Results - Labs CBC & BMP: 02/14/17 08:27 02/14/17 08:27 Discharge Plan - Discharge Medications No Action Atorvastatin [Lipitor] 80 mg PO PC SUPPER Aspirin [Ecotrin] 81 mg PO QAM Carvedilol 12.5 mg PO BID LORazepam TAB [Ativan Tab] 0.5 mg PO BEDTIME Losartan Potassium 100 mg PO QAM Tamsulosin HCl 0.4 mg PO PC BREAKFAST hydroCHLOROthiazide [Hydrochlorothiazide] 25 mg PO QAM Clopidogrel [Plavix] 75 mg PO QAM - Follow Up or Referral - Forms/Instructions
[2017-02-14] MEDS: ASPIRIN EC 81 MG TABLET PO SCH (10:01)
[2017-02-14] MEDS: POTASSIUM CHLORIDE 20 MEQ TABLET PO SCH (10:01)
[2017-02-14] MEDS: TAMSULOSIN 0.4 MG CAPSULE PO SCH ×2 (10:02→20:20)
[2017-02-14] MEDS: PANTOPRAZOLE 40 MG TABLET PO SCH (10:02)
[2017-02-14] MEDS: CARVEDILOL 6.25 MG TABLET PO SCH ×2 (10:02→20:20)
--- NOTE | 2017-02-14 14:39 | Hospitalist Progress Note ---
Assessment and Plan (1) Acute on chronic kidney failure Status: Acute Assessment and plan: Likely due to urinary retention; Improving; Continue IVF Current Visit: Yes (2) Urinary retention due to benign prostatic hyperplasia Status: Acute Assessment and plan: Urology following; on flomax; Cytoscope today Current Visit: Yes (3) Anemia Status: Chronic Assessment and plan: chronic Current Visit: Yes Hospitalist: Subjective Interval history: Mr. Dennis is a 61-year-old with a history of hypertension, atrial fibrillation, chronic kidney disease, and coronary artery disease. Patient was admitted with acute on chronic renal failure and acute urinary retention. Patient also has some hematuria for a short period of time. Patient has a scope today. Patient reports feeling well without complaints. Exam - Constitutional Vitals: Period Temp Pulse Resp BP Sys/Chinchilla Pulse Ox Last 24 Hr 96.8 F-98.6 F 49-64 18-20 99-145/55-86 96-100 General appearance: normal weight, no acute distress - Head Head exam: Present: normal inspection - Eye Eye exam: Present: EOMI - Respiratory Respiratory exam: Present: clear to auscultation bilaterally - Cardiovascular Cardiovascular exam: Present: regular rate and rhythm - GI/Abdominal GI/Abdominal exam: Present: normal bowel sounds, soft. Absent: tenderness - Extremities Exam Extremities exam: Absent: edema - Neurological Exam Neurological exam: Present: alert, oriented X3 - Psychiatric Psychiatric exam: Present: normal affect, normal mood - Skin Skin exam: Present: normal color Results - Labs CBC & BMP: 02/14/17 08:27 02/14/17 08:27 Specialty Discharge - Follow Up or Referrals Follow up with: Neptali Mcnair MD [Physician] - 2 Weeks
[2017-02-14] MEDS: ATORVASTATIN 10 MG TABLET PO SCH (17:18)
[2017-02-14] MEDS: LORazepam 0.5 MG TABLET PO SCH (20:21)
[2017-02-14] MEDS: DOCUSATE SODIUM 100 MG CAPSULE PO PRN (20:23)
[2017-02-15 06:31] LABS: Basophils % 0.6 % (0.0-0.8); Eosinophils # 0.3 10*3/uL (0.0-0.87); Hematocrit 32.1 VOL% (42.0-52.0); Hemoglobin 10.5 GM/DL (14.0-18.0); Immature Granulocytes % 0.6 %; Immature Granulocytes Absolute 0.04 #; Lymphocytes # 1.1 10*3/uL (1.4-4.0); Lymphocytes % 18.1 % (21.2-54.2); Mean Corpuscular HGB Conc 32.7 GM/DL (32-36); Mean Corpuscular Hemoglobin 28 PG (27-34); Mean Corpuscular Volume 85.1 FL (87-102); Mean Platelet Volume 12.1 FL (9.6-12.0); Monocytes # 0.5 10*3/uL (0.11-0.8); Monocytes % 7.6 % (1.7-12.7); Neutrophils # 4.4 10*3/uL (1.4-7.4); Neutrophils % 69.1 % (38.7-73.9); Platelet Count 146 T/CUMM (130-400); Red Blood Count 3.77 MC/CUMM (3.8-5.5); Red Cell Distribution Width 14.8 % (9.3-17.3); White Blood Count 6.3 T/CUMM (4-12)
[2017-02-15 06:59] LABS: Albumin 3.5 G/DL (3.4-5.0); Bilirubin,Total 1.2 MG/DL (0.2-1.0); Calcium 8.3 MG/DL (8.5-10.1); Osmolality,Calculated 297.6 MOS/KG (273-304); Potassium 3.8 MMOL/L (3.5-5.1); Total Protein 6.2 G/DL (6.4-8.3)
--- NOTE | 2017-02-15 07:51 | Nephrology Progress Note ---
Nephrology - PN: Subj Interval history: Patient is feeling well at this point. He denies shortness of breath. Review of systems GI denies nausea or vomiting, cardiac-his swelling has dissipated Physical exam general the patient is in no acute distress, he has no pitting edema Assessment/plan 1. Acute renal failure-patient's creatinine improved to 3.6 mg/ dL, he developed obstructive uropathy, at this point his kidney seem to be recovering and from my standpoint is okay with the patient is discharged home. In discussing his case with Dr. Mcnair he would like him to remain with a Mart catheter and to continue on the increased dose of Flomax during his catheter drainage. I will see the patient in follow-up in a couple of weeks 2. Chronic kidney disease stage III-this patient has a history of chronic kidney disease in the past his previous baseline creatinine was around 2.6 3. Hypertension-patient had been on hydrochlorothiazide and losartan as well as a increased dose of Coreg he is presently getting 6.25 mg of Coreg twice daily only, his systolic blood pressures running around 110 and 120. His heart rate has been in the 50s. At this point I would probably just send him out on 3.125 mg of Coreg twice daily 4. Bradycardia see #3 above Exam (PN)-Nephrology - Vital Signs Vital signs: Period Temp Pulse Resp BP Sys/Chinchilla Pulse Ox Last 24 Hr 96.3 F-97.9 F 51-64 18-20 101-132/51-80 97-100 - Lab 02/15/17 04:28 02/15/17 04:28 Most recent lab results Calcium 8.3 MG/DL (8.5-10.1) L 02/15/17 04:28 Magnesium 3.1 MG/DL (1.8-2.4) H 02/11/17 01:17 Assessment and Plan (1) Acute on chronic kidney failure Status: Acute Assessment and plan: This patient's creatinine was around 3 mg/dL 2 years ago, his creatinine is increased at 14 now he had 2 L of urine to pass immediately upon placing a Mart catheter. I suspect he has acute renal failure related to urinary obstruction and retention. I am going to start him on some IV fluids and will ask urology to see him in consultation Current Visit: Yes (2) Coronary artery disease Status: Acute Current Visit: Yes (3) Urinary retention due to benign prostatic hyperplasia Status: Acute Current Visit: Yes (4) Hypertension Status: Chronic Current Visit: No (5) Metabolic acidosis Status: Resolved Assessment and plan: We will monitor this Current Visit: Yes (6) Chronic back pain Status: Acute Current Visit: Yes (7) Hematuria Status: Acute Assessment and plan: This may be secondary to catheterization trauma with the Mart versus bladder injury related to his urinary bladder distention and retention. Current Visit: Yes Specialty Discharge - Follow Up or Referrals Follow up with: Neptali Mcnair MD [Physician] - 2 Weeks Paddy Hua MD [Physician] - 2 Weeks (bmp and a cbc)
[2017-02-15] MEDS ORDERED: CARVEDILOL 3.125 MG TABLET PO SCH (07:53)
[2017-02-15 08:15] VITALS: BP 156/95
[2017-02-15] MEDS: PANTOPRAZOLE 40 MG TABLET PO SCH (09:54)
[2017-02-15] MEDS: TAMSULOSIN 0.4 MG CAPSULE PO SCH (09:54)
[2017-02-15] MEDS: POTASSIUM CHLORIDE 20 MEQ TABLET PO SCH (09:54)
[2017-02-15] MEDS: ASPIRIN EC 81 MG TABLET PO SCH (09:54)
[2017-02-15] MEDS: SODIUM CHLORIDE 0.9% 1,000 ML IV SCH (09:56)
--- NOTE | 2017-02-15 10:16 | Discharge Summary ---
<Dario Smith - Last Filed: 02/15/17 09:54> Hospital Course - Hospital Course Hospital Course: Mr. Dennis is a 61 yr old male patient with a history of htn, MD, afib , CAD, CAB, chronic back pain, arthritis and chronic kidney disease stage 3 that presented to the ED on 02/10 after being seen at his PCP's office (Dr. Jamison) for urinary retention where he was also noted to have abnormal lab values. Pt. had a bun and creatinine of 101/15.13, respectively in Dr. Jamison office. Pt. had been seen in December by Dr. Jamison for similar complaints. He was placed on Flomax at that time. Pt. was referred to our ED for further workup. In the ED, labs were repeated and he was noted to have a bun/creatinine of 88/ 14.7. Pt. was admitted to the hospitalist service for treatment. Nephrology was consulted to assist in the care of the patient. (Pt. had been by nephrology about 2 yrs prior after suffering LEONEL after CABG). During this visit, the recommendation was that pt. be started on IV fluids and a reynolds catheter was placed. Pt. had almost an immediate output of about 2L. Pt. was also noted to have some hematuria which was presumed to be secondary to cath insertion trauma. Urology was consulted at that time. Flomax was doubled and patient's catheter was irrigated. Good urinary output was recorded. On 02/14, pt underwent a cystoscopy by Dr. Mcnair. Pt. tolerated well. An 18 maltese coude tip reynolds was left in place. No significant abnormalities were noted. Labs and vital signs have been stable. (Bun/creatinine are noted at 36/3.6 respectively). Pt has been ambulating frequently. Pt. is stable for discharge. He is to follow up with his PCP as well as Dr. Mcnair (2 weeks) and Dr. Hua (2 weeks bmp/cbc). Specialty Discharge - Follow Up or Referrals Follow up with: Paddy Hua MD [Physician] - 03/01/17 9:30 am (bmp and a cbc) Neptali Mcanir MD [Physician] - 03/07/17 3:15 pm Eduardo Jamison DO [Physician] - 2 Weeks Discharge Plan - Discharge Medications New Acetaminophen Tab [Tylenol Tab] 650 mg PO Q4H PRN tablet PRN Reason: Fever, Headache, Mild Pain Carvedilol [Coreg] 3.125 mg PO BID #60 tablet Pantoprazole Tab [Protonix Tab] 40 mg PO DAILY #30 tablet Tamsulosin [Flomax] 0.4 mg PO BID #30 capsule Potassium Chloride Cap/Tab [K Dur] 40 meq PO DAILY #30 tablet Continue Atorvastatin [Lipitor] 80 mg PO PC SUPPER Aspirin [Ecotrin] 81 mg PO QAM LORazepam TAB [Ativan Tab] 0.5 mg PO BEDTIME Clopidogrel [Plavix] 75 mg PO QAM #0 Discontinued Carvedilol 12.5 mg PO BID Losartan Potassium 100 mg PO QAM Tamsulosin HCl 0.4 mg PO PC BREAKFAST hydroCHLOROthiazide [Hydrochlorothiazide] 25 mg PO QAM - Follow Up or Referral Follow Up: md, pcp [Other] - 2 Weeks Paddy Hua MD [Physician] - 03/01/17 9:30 am (bmp and a cbc) Neptali Mcnair MD [Physician] - 03/07/17 3:15 pm - Forms/Instructions Instructions: Reynolds Catheter Placement and Care (DC) Exam - Constitutional Vitals: Period Temp Pulse Resp BP Sys/Chinchilla Pulse Ox Last 24 Hr 96.3 F-97.9 F 51-75 18-20 101-156/51-95 94-100 Discharge Results Labs on day of discharge: Labs from last 24 hours 02/15/17 02/15/17 04:28 04:28 WBC 6.3 D RBC 3.77 L Hgb 10.5 L Hct 32.1 L MCV 85.1 L MCH 28 MCHC 32.7 RDW 14.8 Plt Count 146 MPV 12.1 H Neut % (Auto) 69.1 Lymph % (Auto) 18.1 L King % (Auto) 7.6 Eos % (Auto) 4.0 Baso % (Auto) 0.6 Neut # (Auto) 4.4 Lymph # (Auto) 1.1 L King # (Auto) 0.5 Eos # (Auto) 0.3 Baso # (Auto) 0.0 Immature Gran % 0.6 Nucleated RBC % 0.0 Immature Gran # 0.04 Nucleated RBCs # 0.00 Sodium 146 H Potassium 3.8 Chloride 112 H Carbon Dioxide 23 Anion Gap 14.8 BUN 36 H Creatinine 3.60 H GFR Calculation 20 BUN/Creatinine Ratio 10.00 Glucose 95 Calculated Osmolality 297.6 Calcium 8.3 L Total Bilirubin 1.20 H AST 26 ALT 24 Alkaline Phosphatase 77 Total Protein 6.2 L Albumin 3.5 Globulin 2.7 Albumin/Globulin Ratio 1.2 DS: Provider Date of admission: 02/10/17 14:11 Primary care physician: . No PCP Attending physician on admission: Freddy Guillermo MD Consults: 02/10/17 14:26 Consult to Physician [CONS] Routine Comment: has seen Dr Miller after CABG 2 years ago Consulting Provider: Paddy Hua Consulting Provider Notified: Yes When should Consulting Provider be notified: Now Consult to Specialist Group: Nephrology When should Consulting Provider be notified: Now Person Notified: SUZANNA Date Notified: 02/10/17 Time Notified: 15:59 02/10/17 15:47 Consult to Physician [CONS] Routine Comment: Pt with LEONEL and Urinary retention Consulting Provider: Neptali Mcnair Consulting Provider Notified: No When should Consulting Provider be notified: Now Consult to Specialist Group: Urology When should Consulting Provider be notified: In am Person Notified: NAYAN Date Notified: 02/10/17 Time Notified: 16:00 Discharging clinician: Dario Smith NP <Alexia Del Cid - Last Filed: 02/15/17 12:31> Hospital Course - Time spent with patient Time with patient DS: Greater than 30 minutes (47 minutes) Discharge Plan - Discharge Data Condition at Discharge: Stable Discharge Diet: advance to your usual diet Activity: resume usual activities as tolerated Contact your physician if you experience:: fever over 101, Difficulty voiding, Redness or swelling, Nausea/Vomiting, Shortness of breath, Bleeding, pain uncontrolled by pain medications Exam - Constitutional Exam: A and O x 4, lying in the bed in no acute distress chewing snuff RRR no M CTAB nonlabored Soft, NT, ND, +BS Warm no c/c/e +Reynolds in place with clear yellow urine
== END 2017-02-15 11:20 | disposition home or self-care (01) | DRG 501 ==
LOC: N.ED 12:07 → N.EDINP 14:11 → SUATTDRO 14:11 → N.4E 16:15
PROVIDERS: ADMIT Internal Medicine; ATTEND Pediatrics

== ENCOUNTER 2017-10-09 12:00 | Inpatient (IN) ==
[2017-10-09] MEDS ORDERED: SODIUM CHLORIDE 0.9% 1,000 ML IV STA (12:30)
[2017-10-09] MEDS ORDERED: ONDANSETRON 4 MG/2 ML VIAL IV STA (12:34)
[2017-10-09] MEDS ORDERED: HYDROmorphone 2 MG/1 ML VIAL IV STA ×3 (12:34→14:51)
[2017-10-09] MEDS ORDERED: ONDANSETRON 4 MG/2 ML VIAL ONE (12:39)
[2017-10-09] MEDS ORDERED: HYDROmorphone 2 MG/1 ML VIAL ONE ×3 (12:39→14:52)
[2017-10-09 12:44] LABS: Basophils # 0.1 10*3/uL (0.0-0.2); Basophils % 0.7 % (0.0-0.8); Eosinophils # 0.1 10*3/uL (0.0-0.87); Eosinophils % 0.7 % (0.00-10.9); Hematocrit 39.6 VOL% (42.0-52.0); Hemoglobin 12.9 GM/DL (14.0-18.0); Immature Granulocytes % 1.8 %; Immature Granulocytes Absolute 0.32 #; Lymphocytes # 1.2 10*3/uL (1.4-4.0); Lymphocytes % 6.5 % (21.2-54.2); Mean Corpuscular HGB Conc 32.6 GM/DL (32-36); Mean Corpuscular Hemoglobin 25 PG (27-34); Mean Corpuscular Volume 77.5 FL (87-102); Mean Platelet Volume 10.7 FL (9.6-12.0); Monocytes # 1.6 10*3/uL (0.11-0.8); Neutrophils # 14.6 10*3/uL (1.4-7.4); Neutrophils % 81.3 % (38.7-73.9); Platelet Count 373 T/CUMM (130-400); Red Blood Count 5.11 MC/CUMM (3.8-5.5); Red Cell Distribution Width 16.9 % (9.3-17.3); White Blood Count 17.9 T/CUMM (4-12)
[2017-10-09 12:57] LABS: INR 1.1; PT Patient Result 11.8 SECS
[2017-10-09 13:23] LABS: Albumin 2.9 G/DL (3.4-5.0); Calcium 10.6 MG/DL (8.5-10.1); Total Protein 7.3 G/DL (6.4-8.3)
[2017-10-09 13:24] LABS: Osmolality,Calculated 266.1 MOS/KG (273-304); Potassium 4.7 MMOL/L (3.5-5.1)
[2017-10-09] MEDS ORDERED: LIDOCAINE 2% TOP JELLY 20 ML VIAL INTRAURETH ONE ×2 (14:27→15:24)
[2017-10-09] MEDS ORDERED: ONDANSETRON 4 MG/2 ML VIAL IV PRN (15:05)
[2017-10-09] MEDS ORDERED: DEXTROSE 50% 25 GM/50 ML VIAL IV PRN (15:05)
[2017-10-09] MEDS ORDERED: GLUCAGON 1 MG VIAL IM PRN (15:05)
[2017-10-09] MEDS ORDERED: LIDOCAINE 2% TOP JELLY 5 ML TUBE TOP ONE (15:22)
[2017-10-09] MEDS: INSULIN REGULAR 100 UNIT/ML SUBCUT SCH ×2 (17:11→20:26)
[2017-10-09 17:12] LABS: Apearance,Urine Slightly Hazy (Clear); Bacteria,Urine Moderate /HPF (Few); Bilirubin,Urine Negative (Negative); Blood, Urine Moderate mg/dL (Negative); Glucose,Urine (UA) Negative (Negative); Ketones,Urine Negative (Negative); Mucus,Urine Occasional /LPF (Occasional); Nitrite,Urine Positive (Negative); Protein,Urine Negative; RBC,Urine 16 /HPF (0-4); Renal Epithelial Cells,Urine Occasional /HPF (<1); Urine Color Yellow (Yellow); Urine Specific Gravity 1.006 (1.001-1.035); Urine Urobilinogen < 2.0 EU/DL (0.2-1.0); WBC,Urine 28 /HPF (0-6)
[2017-10-09] MEDS: LEVOFLOXACIN INJ 250 MG in PREMIX 1 EACH IV SCH (18:14)
[2017-10-09] MEDS: HYDROmorphone 2 MG/1 ML VIAL IV PRN (18:15)
[2017-10-09] MEDS: SODIUM CHLORIDE 0.9% 1,000 ML IV SCH (18:17)
[2017-10-09] MEDS: ATORVASTATIN 80 MG TABLET PO SCH (18:23)
[2017-10-09] MEDS: LORazepam 0.5 MG TABLET PO SCH (20:26)
[2017-10-09] MEDS: CARVEDILOL 3.125 MG TABLET PO SCH (20:26)
[2017-10-09] MEDS: TAMSULOSIN 0.4 MG CAPSULE PO SCH (20:26)
[2017-10-10 05:16] LABS: Basophils # 0.1 10*3/uL (0.0-0.2); Basophils % 0.4 % (0.0-0.8); Eosinophils % 0.1 % (0.00-10.9); Hematocrit 36.1 VOL% (42.0-52.0); Hemoglobin 12.1 GM/DL (14.0-18.0); Immature Granulocytes % 1.2 %; Immature Granulocytes Absolute 0.22 #; Lymphocytes # 1.1 10*3/uL (1.4-4.0); Lymphocytes % 6.3 % (21.2-54.2); Mean Corpuscular HGB Conc 33.5 GM/DL (32-36); Mean Corpuscular Hemoglobin 26 PG (27-34); Mean Platelet Volume 10.8 FL (9.6-12.0); Monocytes % 11.3 % (1.7-12.7); Neutrophils # 14.4 10*3/uL (1.4-7.4); Neutrophils % 80.7 % (38.7-73.9); Platelet Count 320 T/CUMM (130-400); Red Blood Count 4.75 MC/CUMM (3.8-5.5); Red Cell Distribution Width 17.1 % (9.3-17.3); White Blood Count 17.9 T/CUMM (4-12)
[2017-10-10 06:03] LABS: Calcium 9.6 MG/DL (8.5-10.1); Osmolality,Calculated 270.7 MOS/KG (273-304); Potassium 4.8 MMOL/L (3.5-5.1)
[2017-10-10] MEDS ORDERED: DIAZEPAM 5 MG TABLET PO ONE (06:50)
[2017-10-10] MEDS ORDERED: ALBUTEROL 2.5 MG/3 ML NEB RESP TX ONE (06:51)
[2017-10-10] MEDS: HYDROmorphone 2 MG/1 ML VIAL IV PRN ×2 (08:57→17:44)
[2017-10-10] MEDS: ASPIRIN EC 81 MG TABLET PO SCH (09:00)
[2017-10-10] MEDS: CARVEDILOL 3.125 MG TABLET PO SCH ×2 (09:00→20:33)
[2017-10-10] MEDS: TAMSULOSIN 0.4 MG CAPSULE PO SCH ×2 (09:00→20:33)
[2017-10-10] MEDS: PANTOPRAZOLE 20 MG TABLET PO SCH (09:00)
[2017-10-10] MEDS: INSULIN REGULAR 100 UNIT/ML SUBCUT SCH ×4 (09:02→20:34)
[2017-10-10] MEDS: PANTOPRAZOLE 40 MG TABLET PO SCH (10:57)
[2017-10-10] MEDS ORDERED: ceFAZolin 1,000 MG VIAL ONE (14:34)
[2017-10-10] MEDS ORDERED: EPINEPHrine 1 MG/ML VIAL ONE (15:09)
[2017-10-10] MEDS ORDERED: PHENYLEPHRINE 10 MG/1 ML VIAL IV ONE (15:09)
[2017-10-10] MEDS ORDERED: ETOMIDATE 40 MG/20 ML VIAL IV ONE (15:09)
[2017-10-10] MEDS ORDERED: DEXAMETHASONE 10 MG/1 ML VIAL ONE (15:09)
[2017-10-10] MEDS ORDERED: ONDANSETRON 4 MG/2 ML VIAL ONE (15:09)
[2017-10-10] MEDS ORDERED: SODIUM CHLORIDE 0.9% 500 ML IV ONE (15:10)
[2017-10-10] MEDS ORDERED: SUCCINYLCHOLINE 200 MG/10 ML VIAL ONE (15:10)
[2017-10-10] MEDS ORDERED: ROCURONIUM 100 MG/10 ML VIAL IV ONE (15:10)
[2017-10-10] MEDS ORDERED: MIDAZOLAM 2 MG/2 ML VIAL ONE (15:50)
[2017-10-10] MEDS: ceFAZolin 1,000 MG in SYRINGE 1 EACH IV SCH (15:57)
[2017-10-10] MEDS ORDERED: fentaNYL 100 MCG/2 ML VIAL ONE (16:00)
[2017-10-10] MEDS ORDERED: DESFLURANE 1 UNIT/15 MINUTE INH ONE (16:00)
[2017-10-10] MEDS ORDERED: GLYCOPYRROLATE 0.4 MG/2 ML VIAL ONE (16:01)
[2017-10-10] MEDS ORDERED: NEOSTIGMINE 10 MG/10 ML VIAL ONE (16:01)
[2017-10-10] MEDS ORDERED: MIDAZOLAM 2 MG/2 ML VIAL IV ONE (16:08)
[2017-10-10] MEDS: ATORVASTATIN 80 MG TABLET PO SCH (17:49)
[2017-10-10] MEDS: LEVOFLOXACIN INJ 250 MG in PREMIX 1 EACH IV SCH (17:49)
[2017-10-10] MEDS: SODIUM CHLORIDE 0.9% 1,000 ML IV SCH (19:13)
[2017-10-10] MEDS: LORazepam 0.5 MG TABLET PO SCH (20:33)
[2017-10-11] MEDS: ceFAZolin 1,000 MG in SYRINGE 1 EACH IV SCH ×3 (00:34→17:08)
[2017-10-11] MEDS ORDERED: ALUMINUM/MAGNES/SIMETH MAX STR 30 ML UDCUP PO PRN (06:10)
[2017-10-11 06:35] LABS: Basophils % 0.1 % (0.0-0.8); Hematocrit 36.4 VOL% (42.0-52.0); Immature Granulocytes % 1.6 %; Lymphocytes # 0.9 10*3/uL (1.4-4.0); Lymphocytes % 4.7 % (21.2-54.2); Mean Corpuscular Hemoglobin 26 PG (27-34); Mean Corpuscular Volume 77.6 FL (87-102); Mean Platelet Volume 10.5 FL (9.6-12.0); Monocytes # 1.2 10*3/uL (0.11-0.8); Monocytes % 6.2 % (1.7-12.7); Neutrophils # 16.2 10*3/uL (1.4-7.4); Neutrophils % 87.4 % (38.7-73.9); Platelet Count 347 T/CUMM (130-400); Red Blood Count 4.69 MC/CUMM (3.8-5.5); Red Cell Distribution Width 17.4 % (9.3-17.3); White Blood Count 18.6 T/CUMM (4-12)
[2017-10-11 07:09] LABS: Calcium 9.6 MG/DL (8.5-10.1); Osmolality,Calculated 275.7 MOS/KG (273-304)
[2017-10-11 07:14] LABS: Hypochromasia Slight; Lymphocytes 12 % (20-55); Segmented Neutrophils 86 % (50-85); Total Cells Counted 100
[2017-10-11 07:17] LABS: Burr Cells Few
[2017-10-11 07:18] LABS: Ovalocytes Slight
[2017-10-11 07:42] LABS: Acanthocytes Few; Polychromasia Slight
[2017-10-11 07:44] LABS: Platelet Estimate Adequate
[2017-10-11] MEDS: INSULIN REGULAR 100 UNIT/ML SUBCUT SCH ×4 (08:28→20:39)
[2017-10-11] MEDS: TAMSULOSIN 0.4 MG CAPSULE PO SCH ×2 (08:51→20:37)
[2017-10-11] MEDS: ASPIRIN EC 81 MG TABLET PO SCH (08:51)
[2017-10-11] MEDS: CARVEDILOL 3.125 MG TABLET PO SCH ×2 (08:51→20:37)
[2017-10-11] MEDS: PANTOPRAZOLE 20 MG TABLET PO SCH (08:51)
[2017-10-11] MEDS: PANTOPRAZOLE 40 MG TABLET PO SCH (08:51)
[2017-10-11] MEDS: HYDROmorphone 2 MG/1 ML VIAL IV PRN ×3 (09:14→20:44)
[2017-10-11 10:09] LABS: Calcium 9.5 MG/DL (8.5-10.1); Osmolality,Calculated 277.5 MOS/KG (273-304); Potassium 5.5 MMOL/L (3.5-5.1)
[2017-10-11] MEDS: SODIUM CHLORIDE 0.9% 1,000 ML IV SCH (15:51)
[2017-10-11] MEDS: LEVOFLOXACIN INJ 250 MG in PREMIX 1 EACH IV SCH (17:12)
[2017-10-11] MEDS: LORazepam 0.5 MG TABLET PO SCH (20:37)
[2017-10-12] MEDS: ceFAZolin 1,000 MG in SYRINGE 1 EACH IV SCH ×4 (01:37→23:26)
[2017-10-12 03:39] LABS: Basophils % 0.1 % (0.0-0.8); Hemoglobin 10.8 GM/DL (14.0-18.0); Immature Granulocytes % 1.5 %; Lymphocytes % 5.3 % (21.2-54.2); Mean Corpuscular HGB Conc 32.7 GM/DL (32-36); Mean Corpuscular Hemoglobin 26 PG (27-34); Mean Corpuscular Volume 78.2 FL (87-102); Mean Platelet Volume 11.2 FL (9.6-12.0); Monocytes # 1.8 10*3/uL (0.11-0.8); Monocytes % 9.2 % (1.7-12.7); Neutrophils # 16.3 10*3/uL (1.4-7.4); Neutrophils % 83.9 % (38.7-73.9); Platelet Count 305 T/CUMM (130-400); Red Blood Count 4.22 MC/CUMM (3.8-5.5); Red Cell Distribution Width 17.3 % (9.3-17.3); White Blood Count 19.5 T/CUMM (4-12)
[2017-10-12 04:05] LABS: Calcium 9.1 MG/DL (8.5-10.1); Osmolality,Calculated 271.9 MOS/KG (273-304); Potassium 5.1 MMOL/L (3.5-5.1)
[2017-10-12] MEDS: DOCUSATE SODIUM 100 MG CAPSULE PO PRN (05:45)
[2017-10-12] MEDS: INSULIN REGULAR 100 UNIT/ML SUBCUT SCH ×4 (07:25→19:12)
[2017-10-12] MEDS: CARVEDILOL 3.125 MG TABLET PO SCH ×2 (09:18→23:26)
[2017-10-12] MEDS: ASPIRIN EC 81 MG TABLET PO SCH (09:18)
[2017-10-12] MEDS: PANTOPRAZOLE 40 MG TABLET PO SCH (09:19)
[2017-10-12] MEDS: TAMSULOSIN 0.4 MG CAPSULE PO SCH ×2 (09:19→23:26)
[2017-10-12] MEDS: HYDROmorphone 2 MG/1 ML VIAL IV PRN ×5 (13:17→22:23)
[2017-10-12] MEDS: SODIUM CHLORIDE 0.9% 1,000 ML IV SCH (15:30)
[2017-10-12] MEDS: LEVOFLOXACIN INJ 250 MG in PREMIX 1 EACH IV SCH (17:36)
[2017-10-12] MEDS ORDERED: ONDANSETRON 4 MG/2 ML VIAL IV PRN (22:00)
[2017-10-12] MEDS ORDERED: PROPOFOL 200 MG/20 ML VIAL IV ONE (22:01)
[2017-10-12] MEDS ORDERED: MIDAZOLAM 2 MG/2 ML VIAL ONE (22:01)
[2017-10-12] MEDS ORDERED: ACETAMINOPHEN 1,000 MG/100 ML VIAL IV ONE (22:02)
[2017-10-12] MEDS ORDERED: ROCURONIUM 100 MG/10 ML VIAL IV ONE (22:02)
[2017-10-12] MEDS ORDERED: fentaNYL 100 MCG/2 ML VIAL ONE (22:02)
[2017-10-12] MEDS ORDERED: LACTATED RINGERS 1,000 ML IV ONE (22:03)
[2017-10-12] MEDS: LORazepam 0.5 MG TABLET PO SCH (23:26)
[2017-10-13] MEDS: HYDROmorphone 2 MG/1 ML VIAL IV PRN ×4 (01:22→20:56)
[2017-10-13] MEDS: ceFAZolin 1,000 MG in SYRINGE 1 EACH IV SCH ×2 (08:36→16:52)
[2017-10-13] MEDS: INSULIN REGULAR 100 UNIT/ML SUBCUT SCH ×4 (08:37→21:54)
[2017-10-13] MEDS: TAMSULOSIN 0.4 MG CAPSULE PO SCH ×2 (08:40→20:57)
[2017-10-13] MEDS: ASPIRIN EC 81 MG TABLET PO SCH (08:40)
[2017-10-13] MEDS: CARVEDILOL 3.125 MG TABLET PO SCH ×2 (08:40→20:57)
[2017-10-13] MEDS: PANTOPRAZOLE 40 MG TABLET PO SCH (08:40)
[2017-10-13 09:47] LABS: Basophils % 0.2 % (0.0-0.8); Hematocrit 33.9 VOL% (42.0-52.0); Immature Granulocytes % 2.2 %; Immature Granulocytes Absolute 0.44 #; Lymphocytes # 1.4 10*3/uL (1.4-4.0); Lymphocytes % 6.9 % (21.2-54.2); Mean Corpuscular HGB Conc 32.4 GM/DL (32-36); Mean Corpuscular Hemoglobin 26 PG (27-34); Mean Platelet Volume 10.3 FL (9.6-12.0); Monocytes # 2.4 10*3/uL (0.11-0.8); Monocytes % 12.4 % (1.7-12.7); Neutrophils # 15.5 10*3/uL (1.4-7.4); Neutrophils % 78.3 % (38.7-73.9); Platelet Count 291 T/CUMM (130-400); Red Blood Count 4.29 MC/CUMM (3.8-5.5); Red Cell Distribution Width 17.2 % (9.3-17.3); White Blood Count 19.7 T/CUMM (4-12)
[2017-10-13 10:24] LABS: Calcium 8.4 MG/DL (8.5-10.1); Osmolality,Calculated 284.2 MOS/KG (273-304); Potassium 5.3 MMOL/L (3.5-5.1)
[2017-10-13] MEDS: LEVOFLOXACIN INJ 250 MG in PREMIX 1 EACH IV SCH (18:10)
[2017-10-13] MEDS: LORazepam 0.5 MG TABLET PO SCH (20:57)
[2017-10-14] MEDS: ceFAZolin 1,000 MG in SYRINGE 1 EACH IV SCH ×4 (00:47→23:22)
[2017-10-14 05:44] LABS: Basophils % 0.2 % (0.0-0.8); Eosinophils % 0.1 % (0.00-10.9); Hematocrit 32.7 VOL% (42.0-52.0); Hemoglobin 10.6 GM/DL (14.0-18.0); Immature Granulocytes % 2.5 %; Immature Granulocytes Absolute 0.43 #; Lymphocytes # 1.2 10*3/uL (1.4-4.0); Lymphocytes % 6.8 % (21.2-54.2); Mean Corpuscular HGB Conc 32.4 GM/DL (32-36); Mean Corpuscular Hemoglobin 26 PG (27-34); Mean Corpuscular Volume 78.6 FL (87-102); Mean Platelet Volume 10.9 FL (9.6-12.0); Monocytes % 11.7 % (1.7-12.7); Neutrophils # 13.7 10*3/uL (1.4-7.4); Neutrophils % 78.7 % (38.7-73.9); Platelet Count 239 T/CUMM (130-400); Red Blood Count 4.16 MC/CUMM (3.8-5.5); Red Cell Distribution Width 17.3 % (9.3-17.3); White Blood Count 17.4 T/CUMM (4-12)
[2017-10-14 05:59] LABS: Calcium 8.3 MG/DL (8.5-10.1); Osmolality,Calculated 274.8 MOS/KG (273-304); Potassium 4.5 MMOL/L (3.5-5.1)
[2017-10-14] MEDS: TAMSULOSIN 0.4 MG CAPSULE PO SCH ×2 (09:49→20:19)
[2017-10-14] MEDS: CARVEDILOL 3.125 MG TABLET PO SCH ×2 (09:49→20:19)
[2017-10-14] MEDS: ASPIRIN EC 81 MG TABLET PO SCH (09:49)
[2017-10-14] MEDS: PANTOPRAZOLE 40 MG TABLET PO SCH (09:49)
[2017-10-14] MEDS: INSULIN REGULAR 100 UNIT/ML SUBCUT SCH ×3 (11:31→20:15)
[2017-10-14] MEDS: HYDROmorphone 2 MG/1 ML VIAL IV PRN ×3 (13:54→20:19)
[2017-10-14] MEDS: LEVOFLOXACIN INJ 250 MG in PREMIX 1 EACH IV SCH (17:18)
[2017-10-14] MEDS: SODIUM CHLORIDE 0.9% 1,000 ML IV SCH (19:28)
[2017-10-14] MEDS: LORazepam 0.5 MG TABLET PO SCH (20:19)
[2017-10-14] MEDS: ENOXAPARIN 40 MG/0.4 ML SYRINGE SUBCUT SCH (20:19)
[2017-10-15] MEDS: INSULIN REGULAR 100 UNIT/ML SUBCUT SCH ×4 (08:07→20:21)
[2017-10-15] MEDS: PANTOPRAZOLE 40 MG TABLET PO SCH (08:33)
[2017-10-15] MEDS: TAMSULOSIN 0.4 MG CAPSULE PO SCH ×2 (08:33→20:28)
[2017-10-15] MEDS: CARVEDILOL 3.125 MG TABLET PO SCH ×2 (08:33→20:28)
[2017-10-15] MEDS: ASPIRIN EC 81 MG TABLET PO SCH (08:35)
[2017-10-15] MEDS: ceFAZolin 1,000 MG in SYRINGE 1 EACH IV SCH ×3 (11:27→23:12)
[2017-10-15] MEDS ORDERED: BISACODYL 5 MG TABLET PO ONE (15:06)
[2017-10-15] MEDS: SODIUM CHLORIDE 0.9% 1,000 ML IV SCH ×2 (17:55→23:16)
[2017-10-15] MEDS: LEVOFLOXACIN INJ 250 MG in PREMIX 1 EACH IV SCH (17:55)
[2017-10-15] MEDS: POLYETHYLENE GLYCOL POWDER 17 GM PACK PO SCH (17:55)
[2017-10-15] MEDS: LORazepam 0.5 MG TABLET PO SCH (20:28)
[2017-10-15] MEDS: ENOXAPARIN 40 MG/0.4 ML SYRINGE SUBCUT SCH (20:28)
[2017-10-15] MEDS: HYDROmorphone 2 MG/1 ML VIAL IV PRN (20:28)
[2017-10-16] MEDS: INSULIN REGULAR 100 UNIT/ML SUBCUT SCH ×4 (07:19→20:29)
[2017-10-16] MEDS: ASPIRIN EC 81 MG TABLET PO SCH (09:45)
[2017-10-16] MEDS: TAMSULOSIN 0.4 MG CAPSULE PO SCH ×2 (09:45→20:07)
[2017-10-16] MEDS: POLYETHYLENE GLYCOL POWDER 17 GM PACK PO SCH (09:45)
[2017-10-16] MEDS: PANTOPRAZOLE 40 MG TABLET PO SCH (09:45)
[2017-10-16] MEDS: CARVEDILOL 3.125 MG TABLET PO SCH ×2 (09:45→20:07)
[2017-10-16] MEDS: ceFAZolin 1,000 MG in SYRINGE 1 EACH IV SCH ×2 (09:46→17:15)
[2017-10-16] MEDS: HYDROmorphone 2 MG/1 ML VIAL IV PRN ×4 (10:00→22:42)
[2017-10-16] MEDS: LEVOFLOXACIN INJ 250 MG in PREMIX 1 EACH IV SCH (17:19)
[2017-10-16] MEDS: ENOXAPARIN 40 MG/0.4 ML SYRINGE SUBCUT SCH (20:07)
[2017-10-16] MEDS: DOCUSATE SODIUM 100 MG CAPSULE PO PRN (20:07)
[2017-10-16] MEDS: LORazepam 0.5 MG TABLET PO SCH (20:07)
[2017-10-16] MEDS ORDERED: HYDROmorphone 2 MG/1 ML VIAL ONE (22:35)
[2017-10-17] MEDS ORDERED: HYDROmorphone 2 MG/1 ML VIAL ONE (00:03)
[2017-10-17] MEDS: ceFAZolin 1,000 MG in SYRINGE 1 EACH IV SCH ×4 (00:55→23:23)
[2017-10-17] MEDS: SODIUM CHLORIDE 0.9% 1,000 ML IV SCH ×2 (03:15→23:24)
[2017-10-17] MEDS: HYDROmorphone 2 MG/1 ML VIAL IV PRN (03:17)
[2017-10-17] MEDS: INSULIN REGULAR 100 UNIT/ML SUBCUT SCH ×4 (07:48→21:02)
[2017-10-17] MEDS: POLYETHYLENE GLYCOL POWDER 17 GM PACK PO SCH (09:02)
[2017-10-17] MEDS: CARVEDILOL 3.125 MG TABLET PO SCH ×2 (09:03→21:37)
[2017-10-17] MEDS: ASPIRIN EC 81 MG TABLET PO SCH (09:03)
[2017-10-17] MEDS: PANTOPRAZOLE 40 MG TABLET PO SCH (09:03)
[2017-10-17] MEDS: TAMSULOSIN 0.4 MG CAPSULE PO SCH ×2 (09:03→21:37)
[2017-10-17] MEDS ORDERED: CASTOR OIL 59 ML BOTTLE PO ONE (12:00)
[2017-10-17] MEDS: HYDROmorphone 2 MG TABLET PO PRN ×2 (13:48→19:28)
[2017-10-17] MEDS: LEVOFLOXACIN INJ 250 MG in PREMIX 1 EACH IV SCH (17:09)
[2017-10-17] MEDS: ENOXAPARIN 40 MG/0.4 ML SYRINGE SUBCUT SCH (21:37)
[2017-10-18] MEDS: HYDROmorphone 2 MG TABLET PO PRN ×6 (00:12→23:57)
[2017-10-18 06:51] LABS: Basophils # 0.1 10*3/uL (0.0-0.2); Basophils % 0.5 % (0.0-0.8); Eosinophils # 0.5 10*3/uL (0.0-0.87); Eosinophils % 2.2 % (0.00-10.9); Hematocrit 31.9 VOL% (42.0-52.0); Hemoglobin 10.4 GM/DL (14.0-18.0); Immature Granulocytes Absolute 1.47 #; Lymphocytes % 4.6 % (21.2-54.2); Mean Corpuscular HGB Conc 32.6 GM/DL (32-36); Mean Corpuscular Hemoglobin 26 PG (27-34); Mean Corpuscular Volume 78.2 FL (87-102); Mean Platelet Volume 10.7 FL (9.6-12.0); Monocytes # 2.5 10*3/uL (0.11-0.8); Monocytes % 11.7 % (1.7-12.7); Neutrophils # 15.5 10*3/uL (1.4-7.4); Platelet Count 271 T/CUMM (130-400); Red Blood Count 4.08 MC/CUMM (3.8-5.5); Red Cell Distribution Width 18.3 % (9.3-17.3)
[2017-10-18 07:15] LABS: Band Neutrophils 3 % (0-10); Burr Cells Slight; Giant Platelets Few; Hypochromasia 1+; Lymphocytes 5 % (20-55); Ovalocytes Slight; Platelet Estimate Adequate; Segmented Neutrophils 82 % (50-85); Total Cells Counted 100
[2017-10-18 07:24] LABS: Calcium 8.6 MG/DL (8.5-10.1); Osmolality,Calculated 265.2 MOS/KG (273-304); Potassium 4.6 MMOL/L (3.5-5.1)
[2017-10-18] MEDS: INSULIN REGULAR 100 UNIT/ML SUBCUT SCH ×4 (07:36→20:19)
[2017-10-18] MEDS: ceFAZolin 1,000 MG in SYRINGE 1 EACH IV SCH ×2 (08:47→17:28)
[2017-10-18] MEDS: ASPIRIN EC 81 MG TABLET PO SCH (08:48)
[2017-10-18] MEDS: PANTOPRAZOLE 40 MG TABLET PO SCH (08:48)
[2017-10-18] MEDS: CARVEDILOL 3.125 MG TABLET PO SCH ×2 (08:48→20:09)
[2017-10-18] MEDS: TAMSULOSIN 0.4 MG CAPSULE PO SCH ×2 (08:48→20:07)
[2017-10-18] MEDS: POLYETHYLENE GLYCOL POWDER 17 GM PACK PO SCH (08:54)
[2017-10-18] MEDS ORDERED: TUBERCULIN SKIN TEST 0.1 ML SYRINGE INTRADERM ONE (09:46)
[2017-10-18] MEDS: LEVOFLOXACIN INJ 250 MG in PREMIX 1 EACH IV SCH (17:28)
[2017-10-18] MEDS: SODIUM CHLORIDE 0.9% 1,000 ML IV SCH (17:28)
[2017-10-18] MEDS: ENOXAPARIN 40 MG/0.4 ML SYRINGE SUBCUT SCH (20:07)
[2017-10-19] MEDS: ceFAZolin 1,000 MG in SYRINGE 1 EACH IV SCH ×2 (00:01→10:15)
[2017-10-19] MEDS: INSULIN REGULAR 100 UNIT/ML SUBCUT SCH ×3 (08:29→17:01)
[2017-10-19] MEDS: POLYETHYLENE GLYCOL POWDER 17 GM PACK PO SCH (10:12)
[2017-10-19] MEDS: HYDROmorphone 2 MG TABLET PO PRN ×2 (10:14→17:37)
[2017-10-19] MEDS: PANTOPRAZOLE 40 MG TABLET PO SCH (10:15)
[2017-10-19] MEDS: CARVEDILOL 3.125 MG TABLET PO SCH (10:15)
[2017-10-19] MEDS: ASPIRIN EC 81 MG TABLET PO SCH (10:15)
[2017-10-19] MEDS: TAMSULOSIN 0.4 MG CAPSULE PO SCH (10:15)
[2017-10-19] MEDS: SODIUM CHLORIDE 0.9% 1,000 ML IV SCH (17:59)
[2017-10-19 20:37] VITALS: BP 114/70
== END 2017-10-19 20:25 | disposition swing bed (61) | DRG 308 ==
LOC: EDUNIT# → EDBD → N.ED 12:00 → SUATTDRO 14:15 → N.EDINP 14:15 → N.3E 17:19
PROVIDERS: ATTEND Internal Medicine Cardiovascular Disease